=== PATIENT | male | born 1945 | race American Indian/Alaskan Native ===

== ENCOUNTER 2020-03-23 18:36 | Emergency (ER) | payer SELFPAY ==
--- NOTE | 2020-03-24 00:26 | Emergency Department Report ---
ED Psych HPI - General Chief Complaint: Psych Stated Complaint: 1013 Time Seen by Provider: 03/23/20 19:50 Source: patient Mode of arrival: Ambulatory - History of Present Illness Initial Comments: Patient is a 74-year-old F [place] male who was brought in by police because of potential aggressive behavior. Patient even supplied a letter in an envelope that appears to be generally sent to emergency departments when he arrives that he has a history of PTSD violent outbursts with words only. She is adamant that he is never struck her. Patient is a day became angry and police were called to the home. Patient states he usually sits on his porch with 2 knives for self defense just in case. Police argued with the patient and he was given the option of going to snf or come to the hospital. Since the patient is been here he admits that he was agitated earlier but is no longer agitated. Patient states he is not homicidal suicidal at this time. Patient was seen yesterday at an outside emergency department for chronic abdominal pain. He was diagnosed with colitis and is now Cipro Flagyl. States his abdominal pain is improving. - Related Data Allergies Allergy/AdvReac Type Severity Reaction Status Date / Time No Known Allergies Allergy Unverified 03/23/20 19:26 ED Review of Systems ROS: Stated complaint: 1013 Other details as noted in HPI Comment: All other systems reviewed and negative ED Past Medical Hx - Past Medical History Previous Medical History?: No - Surgical History Additional Surgical History: small bowel resection, glaucoma sx, - Social History Smoking Status: Never Smoker Substance Use Type: None ED Physical Exam - General Limitations: No Limitations General appearance: alert, in no apparent distress - Head Head exam: Present: atraumatic, normocephalic - Eye Eye exam: Present: normal appearance, PERRL, EOMI - ENT ENT exam: Present: mucous membranes moist - Neck Neck exam: Present: normal inspection - Respiratory Respiratory exam: Present: normal lung sounds bilaterally. Absent: respiratory distress, wheezes, rales, rhonchi - Cardiovascular Cardiovascular Exam: Present: regular rate, normal rhythm. Absent: systolic murmur, diastolic murmur, rubs, gallop - GI/Abdominal GI/Abdominal exam: Present: soft, normal bowel sounds - Rectal Rectal exam: Present: deferred - Extremities Exam Extremities exam: Present: normal inspection - Back Exam Back exam: Present: normal inspection - Neurological Exam Neurological exam: Present: alert, oriented X3 - Psychiatric Psychiatric exam: Present: normal affect, normal mood - Skin Skin exam: Present: warm, dry, intact, normal color. Absent: rash ED Course Vital Signs 03/23/20 20:41 Temperature 99.2 F Pulse Rate 88 Respiratory 18 Rate Blood Pressure 129/79 [Left] O2 Sat by Pulse 99 Oximetry ED Medical Decision Making - Medical Decision Making Patient was monitored here in the emergency department. Waited for our psych cafe or restaurant manager to speak with the patient. Patient is not homicidal suicidal and can be released home. Critical care attestation.: If time is entered above; I have spent that time in minutes in the direct care of this critically ill patient, excluding procedure time. ED Disposition Clinical Impression: Aggressive behavior, PTSD (post-traumatic stress disorder) Disposition: DC-01 TO HOME OR SELFCARE Is pt being admited?: No Does the pt Need Aspirin: No Condition: Stable Instructions: Stress (ED), Post Traumatic Stress Disorder (ED) Referrals: CAROLANN VALERO MD [Primary Care Provider] - 3-5 Days Time of Disposition: 00:25
[2020-03-24 01:39] VITALS: BP 177/66
== END 2020-03-24 05:30 | disposition home or self-care (01) ==
LOC: ED 18:36
DX: F43.10 Post-traumatic stress disorder, unspecified (principal); X58.XXXA Exposure to other specified factors, initial encounter; Y93.89 Activity, other specified; Y92.89 Other specified places as the place of occurrence of the external cause; Y99.8 Other external cause status
CPT/HCPCS: 99283